=== PATIENT | female | born 1975 | race Hispanic/Latino ===

== ENCOUNTER 2021-05-15 12:22 | Emergency (ER) | payer SELFPAY ==
[~2021-05-15] VITALS: Ht 152.4 cm; Wt 115.7 kg
== END 2021-05-15 15:03 | disposition home or self-care (01) ==
LOC: ER 12:48
DX: G51.0 Bell's palsy (principal); I10 Essential (primary) hypertension; E11.9 Type 2 diabetes mellitus without complications; Z90.49 Acquired absence of other specified parts of digestive tract; E66.01 Morbid (severe) obesity due to excess calories
CPT/HCPCS: 70450; 99283